=== PATIENT | female | born 1985 | race Asian ===

== ENCOUNTER 2016-09-30 03:47 | Inpatient (IN) | payer BC ==
[2016-09-30] MEDS ORDERED: Oxytocin in LR* 20 UNITS/1,000 ML BAG IVPB SCH ×2 (05:00→16:00)
[2016-09-30] MEDS ORDERED: D5LR 1000 ML BAG* 1,000 ML IV SCH (05:00)
[2016-09-30 05:01] LABS: Hematocrit 36 % (35-47); Hemoglobin 12.1 g/dl (12.0-16.0); Mean Corpuscular HGB Conc 34 g/dl (31-36); Mean Corpuscular Hemoglobin 31 pg (27-31); Mean Corpuscular Volume 91 fL (80-97); Mean Platelet Volume 9 um3 (7.4-10.4); Red Blood Count 3.95 10^6/ul (4.0-5.4); Red Cell Distribution Width 14 % (10.5-15); White Blood Count 6.3 10^3/ul (3.5-10.8)
[2016-09-30] MEDS ORDERED: Dibucaine 1% 28.35 GM TUBE ONE (14:45)
[2016-09-30] MEDS ORDERED: Witch Hazel PAD* JAR ONE (14:45)
[2016-09-30] MEDS ORDERED: Ibuprofen TAB* 600 MG PO PRN (15:47)
[2016-09-30] MEDS ORDERED: Glycerin ADULT SUPP PR PRN (15:47)
[2016-09-30] MEDS ORDERED: Acetaminophen TAB* 325 MG PO PRN (15:47)
[2016-09-30] MEDS ORDERED: Dibucaine 1% 28.35 GM TUBE PR PRN (15:47)
[2016-09-30] MEDS ORDERED: Witch Hazel PAD* JAR TOPICAL PRN (15:47)
[2016-09-30] MEDS ORDERED: Oxytocin in LR* 20 UNITS/1,000 ML BAG IVPB ONE (16:00)
[2016-09-30] MEDS ORDERED: Lidocaine 1% MPF* 2 ML VIAL ONE (16:27)
[2016-09-30] MEDS ORDERED: Simethicone CHEW TAB* 80 MG PO SCH (17:30)
[2016-09-30] MEDS: Docusate CAP* 100 MG PO SCH (20:52)
[2016-10-01 07:45] LABS: Hematocrit 33 % (35-47); Hemoglobin 11.1 g/dl (12.0-16.0); Mean Corpuscular HGB Conc 33 g/dl (31-36); Mean Corpuscular Hemoglobin 31 pg (27-31); Mean Corpuscular Volume 92 fL (80-97); Mean Platelet Volume 9 um3 (7.4-10.4); Red Blood Count 3.63 10^6/ul (4.0-5.4); Red Cell Distribution Width 14 % (10.5-15); White Blood Count 13.4 10^3/ul (3.5-10.8)
[2016-10-01] MEDS: Docusate CAP* 100 MG PO SCH ×3 (10:00→21:21)
[2016-10-01] MEDS: Ferrous Gluconate TAB* 324 MG TAB PO SCH ×2 (10:01→21:21)
--- NOTE | 2016-10-01 14:51 | PTEDU ---
Patient Name: POPEYE TERRY POPEYE TERRY selected video: Never Ever Shake a Baby to view on 10[facility]01[facility]2016 at 2:50:29 PM [email or web address]
--- NOTE | 2016-10-01 14:59 | PTEDU ---
Patient Name: POPEYE TERRY POPEYE TERRY selected video: BBOB: Nurturing Your Gorgeous \T\Growing Baby by to view o n 10/01/2016 at 2:59:09 PM [id number]
--- NOTE | 2016-10-01 19:15 | PTEDU ---
Patient Name: POPEYE TERRY POPEYE TERRY selected video: BBOB: Bonding Through Massage to view on 10/01/2016 at 7:14:01 PM from [email or web address]
--- NOTE | 2016-10-01 19:26 | PTEDU ---
Patient Name: POPEYE TERRY POPEYE TERRY selected video: Follow Me Mum: The [facility] to Successful to view on 10/01/2016 at 7:25:56 PM [id number]
[2016-10-02 08:20] VITALS: BP 92/58
[2016-10-02] MEDS: Docusate CAP* 100 MG PO SCH (08:35)
== END 2016-10-02 11:43 | disposition home or self-care (01) | DRG 560 ==
LOC: MCHOBOUT 03:47 → MCHOB 04:15
PROVIDERS: ADMIT Obstetrics & Gynecology; ATTEND Obstetrics & Gynecology
PROC: 10E0XZZ Delivery of Products of Conception, External Approach (ICD-10-PCS; principal; 2016-09-30)
PROC: 0KQM0ZZ Repair Perineum Muscle, Open Approach (ICD-10-PCS; 2016-09-30)
DX: O70.1 Second degree perineal laceration during delivery (principal); Z37.0 Single live birth; Z3A.37 37 weeks gestation of pregnancy
CPT/HCPCS: 36415; 85025; 86850; 86900; 86901; A9270-GY